=== PATIENT | male | born 1990 | race Caucasian/White ===

== ENCOUNTER → 2024-10-01 | Day surgery (SDC) | payer OTHER ==
[2024-09-20 11:53] LABS: Hematocrit 48.8 % (41.0-53.0); Hemoglobin 17.0 g/dL (13.5-17.5); Mean Corpuscular Hemoglobin 31.5 pg (28.0-32.0); Mean Corpuscular Volume 90.4 fL (80.0-100.0); Nucleated Red Blood Cells % 0.0 %
[2024-09-20 12:08] LABS: INR 1.01 (0.9-1.15); Partial Thromboplastin Time 27.0 SEC (24.5-34.5); Prothrombin Time 10.7 sec (9.3-11.8)
[2024-09-20 12:18] LABS: Albumin 4.6 g/dL (3.2-4.8); Alkaline Phosphatase 63 U/L (46-116); Anion Gap 6 (5-15); BUN/Creatinine Ratio 13.8 (10.0-20.0); Bilirubin, Total 0.7 mg/dL (0.2-1.0); Blood Urea Nitrogen 15 mg/dL (9-23); Calcium 9.7 mg/dL (8.7-10.4); Carbon Dioxide 28 mmol/L (20-31); Chloride 105 mmol/L (98-107); Glucose 95 mg/dL (74-106); Potassium 4.2 mmol/L (3.5-5.1); Sodium 139 mmol/L (136-145); Total Protein 7.2 g/dL (5.7-8.2)
[2024-09-20 12:20] LABS: Urine Protein, UAD Negative (Negative)
[2024-09-20 12:22] LABS: Alanine Aminotransferase 45 U/L (7-40)
[2024-09-27 09:36] LABS: Hematocrit 46.6 % (41.0-53.0); Hemoglobin 16.7 g/dL (13.5-17.5); Mean Corpuscular Hemoglobin 32.1 pg (28.0-32.0); Mean Corpuscular Volume 89.7 fL (80.0-100.0); Nucleated Red Blood Cells % 0.2 %
[2024-09-27 09:58] LABS: INR 0.99 (0.9-1.15); Partial Thromboplastin Time 27.3 SEC (24.5-34.5); Prothrombin Time 10.5 sec (9.3-11.8); Urine Protein, UAD Negative (Negative)
[2024-09-27 10:15] LABS: Albumin 4.5 g/dL (3.2-4.8); Alkaline Phosphatase 63 U/L (46-116); Anion Gap 7 (5-15); BUN/Creatinine Ratio 12.1 (10.0-20.0); Bilirubin, Total 0.7 mg/dL (0.2-1.0); Blood Urea Nitrogen 13 mg/dL (9-23); Calcium 9.6 mg/dL (8.7-10.4); Carbon Dioxide 29 mmol/L (20-31); Chloride 105 mmol/L (98-107); Potassium 4.1 mmol/L (3.5-5.1); Sodium 141 mmol/L (136-145); Total Protein 7.0 g/dL (5.7-8.2)
[2024-09-27 10:17] LABS: Alanine Aminotransferase 42 U/L (7-40); Glucose 73 mg/dL (74-106)
[~2024-10-01] VITALS: Ht 180.3 cm; Wt 81.6 kg
[~2024-10-01] MED LIST: CIPROFLOXACIN 400MG/200ML 200 ML IV ONE; MIDAZOLAM HCL 2MG/2ML 2ml VIAL (1mg/ml) ONE; ONDANSETRON HCL 4 MG/2 ML VIAL IM ONE; ONDANSETRON HCL 4 MG/2 ML VIAL ONE; PROPOFOL 10 MG/ML 20 ML IV ONE; fentaNYL CITRATE 100 MCG/2 ML VL ONE
[2024-10-01] MEDS: ceFAZolin 2 GM/D5W50ml 50 ML IV ONE (07:23)
--- NOTE | 2024-10-01 07:27 | DVHNC2 ---
Procedure - OPERATIVE REPORT Pre-op. Diagnosis: Male Desired Sterilization Post-op. Diagnosis: Same as pre-op diagnosis Operation: Bilateral Vasectomy (No scalpel technique) Anesthesia: General Indications: INDICATION: Male Desired Sterilization CONSENT: The procedure was explained. Complications including but not limited to infection, bleeding, post-procedural swelling, potential for re-establishment of vas continuity and return of fertility were discussed. Informed consent was obtained. Details of Procedure: The patient was placed supine and general anesthesia is admininstered. His genitals were shaved, prepped, and draped in the surgical standard fashion. Using sterile techniques, bilateral vasectomy was performed using a non-scalpel technique after administration of local anesthetic using 1% Lidocaine with Epi. Both Vas Deferens were identified, brought to the surface of scrotal skin through midline puncture site, grasped, doubly clipped and ligated, the edges were fulgurated. Layer of adventitial tissue is placed between the two ends of the divided vas deferens. Hemostasis was obtained and both ends of the vas were returned to their respected locations inside the renay-scrotum. The skin puncture site is left open. Specimens: Bilateral Vas Segments Complications: None Findings: N/A Notes: DISPOSITION: Patient tolerated the procedure well and was discharged home. He will be prophylactically treated with appropriate antibiotics for 5-days. He has been instructed to refrain from sexual activity for 7-days, use scrotal support, and to apply ice pack to both renay-scrotum for 36-48 hours. He is then instructed to engage in at least 20 episodes of sexual ejaculatory episodes before obtaining a sperm analysis during a course of 4-6 weeks. Once he has been confirmed to have zero sperms count, he will then be considered sterile but he is required to use contraception until such time. Patient understands and will follow-up accordingly. Diagnosis: Visit Code: Procedure Codes: 11578 VASECTOMY BILATERAL. notesEligibility :2024-09-28 @ 05:03:53 PDT : Eligible : Eligible;. JAY KEMP MD Oct 01, 2024 07:27
--- NOTE | 2024-10-01 07:30 | DVHDS2 ---
New Physician D'charge PN Admitting Diagnosis Admitting Diagnosis Desired vasectomy Discharge Diagnosis Same Operations or Procedures Vasectomy Reason(s) For Hospitalization Surgery Treatment Plan Discharge Condition of Discharge Good Disposition Home Discharge Instructions Diet: Regular Activity: Light activity Activity comment: As tolerated Medications: Given Follow Up Care Follow Up/Referral: Sperm count in two months Discharge Statement: "Patient was advised to return to the ER or call 911 if any headaches, dizziness, shortness of breath, chest pain, abdominal pain, bleeding, fevers, or worsening of medical condition. Patient was counseled about treatment plan, medications, possible side effects, patientverbalized understanding. All questions were answered to the best of my ability. This discharge took greater then 30 minutes in planning, reviewing documentation, counseling the patient, and discussing with other team members." JAY KEMP MD Oct 01, 2024 07:30
[2024-10-01] MEDS: LIDOCAINE W/ EPINEPHRINE 1% 20ML VIAL ONE (07:38)
[2024-10-01] MEDS: BACITRACIN TOP OINT 1 UD PKG TOP ONE (07:45)
[2024-10-01 07:55] VITALS: PULSE 96; RESP 13; TEMP 98.3; O2SAT 100
[2024-10-01] MEDS: ONDANSETRON HCL 4 MG/2 ML VIAL IV ONE (08:40)
[2024-10-01 09:17] VITALS: BP 107/72; PULSE 86; RESP 17; O2SAT 96
== END | disposition home or self-care (01) ==
LOC: SUR 06:13
PROVIDERS: ATTEND Urology
DX: Z30.2 Encounter for sterilization (principal); Z79.899 Other long term (current) drug therapy; Z86.16 Personal history of COVID-19
CPT/HCPCS: 36415; 55250; 80053; 81001; 85025; 85610; 85730; 87086; 88305; J0690; J0744; J1100; J2250; J2405; J2704; J3010